=== PATIENT | male | born 1965 | race Caucasian/White ===

== ENCOUNTER 2017-03-19 02:32 | Emergency (ER) | payer SELFPAY ==
[2017-03-19 02:41] VITALS: BP 144/99
--- NOTE | 2017-03-19 03:11 | EDM.PDOC ---
ED HPI GENERAL MEDICAL PROBLEM - General Chief Complaint: Chest Pain Stated Complaint: [facility] Time Seen by Provider: 03/19/17 02:32 - History of Present Illness INITIAL COMMENTS - FREE TEXT/NARRATIVE: 51-year-old male presents emergency room by EMS with chest pain. Patient awoke about 30 minutes prior to arrival with chest pain. He described as a substernal pressure he had a burning in his throat and in the back of his mouth. The pain did not radiate into his arm up his neck. The pain is not associated with shortness of breath no nausea or vomiting. Patient has a significant history of having 2 stents placed a little over a year ago he is on Plavix and is supposed to be taking daily aspirin but occasionally he misses this. Patient was treated with a single spray of nitroglycerin and given 324 mg daily aspirin in route. After the nitroglycerin the patient became pain free and is pain-free upon arrival to the emergency room. Past medical history is otherwise unremarkable family history is unremarkable for coronary artery disease. - Related Data Allergies Allergy/AdvReac Type Severity Reaction Status Date / Time No Known Allergies Allergy Verified 03/19/17 02:39 Home Meds: Home Meds Clopidogrel [Plavix] 75 mg PO DAILY 04/20/16 [History] Metoprolol Tartrate [Lopressor] 12.5 mg PO DAILY 04/20/16 [History] atorvaSTATin [Lipitor] 10 mg PO BEDTIME 04/20/16 [History] Aspirin 81 mg PO DAILY 03/19/17 [History] Past Medical History HEENT History: Reports: Impaired Vision Cardiovascular History: Reports: High Cholesterol, Hypertension, [place], Stents Musculoskeletal History: Reports: Back Pain, Chronic, Osteoarthritis Neurological History: Reports: Seizure - Past Surgical History Cardiovascular Surgical History: Reports: Coronary Artery Stent Neurological Surgical History: Reports: Lumbar Spine Musculoskeletal Surgical History: Reports: Other (See Below) Other Musculoskeletal Surgeries/Procedures:: Lumbar fusion Social & Family History - Family History Family Medical History: Noncontributory - Tobacco Use Smoking Status *Q: Never Smoker Second Hand Smoke Exposure: No - Caffeine Use Caffeine Use: Reports: Coffee - Recreational Drug Use Recreational Drug Use: No - Living Situation & Occupation Occupation: Unemployed ED ROS GENERAL - Review of Systems Review Of Systems: See Below Constitutional: Reports: No Symptoms HEENT: Reports: No Symptoms Respiratory: Reports: No Symptoms Cardiovascular: Reports: Chest Pain (He has not had any recent chest pain chest tonight episode). Denies: Dyspnea on Exertion, Edema, Lightheadedness, Palpitations GI/Abdominal: Reports: No Symptoms : Reports: No Symptoms Musculoskeletal: Reports: No Symptoms Neurological: Reports: No Symptoms Psychiatric: Reports: No Symptoms ED EXAM, GENERAL - Physical Exam Exam: See Below Exam Limited By: No Limitations General Appearance: Alert, No Apparent Distress, Other (Vital signs stable he is absolutely pain-free at this time) Head: Atraumatic, Normocephalic Neck: Normal Inspection, Supple, Non-Tender, Full Range of Motion Respiratory/Chest: No Respiratory Distress, Lungs Clear, Normal Breath Sounds Cardiovascular: Regular Rate, Rhythm, No Edema, No Murmur GI/Abdominal: Normal Bowel Sounds, Soft, Non-Tender Back Exam: Normal Inspection. No: CVA Tenderness (L), CVA Tenderness (R) Extremities: Normal Inspection, No Pedal Edema Neurological: Alert, Oriented EKG INTERPRETATION EKG Date: 03/19/17 Rhythm: NSR Victor: LAD-left axis deviation P-wave: present QRS: other (Q waves anteriorly) ST-T: normal QT: normal Comparison: NA - no prior EKG Course - Vital Signs Last Recorded V/S: Last Vital Signs Temp 35.9 C 03/19/17 02:36 Pulse 98 03/19/17 02:36 Resp 19 03/19/17 02:36 BP 144/99 H 03/19/17 02:36 Pulse Ox 97 03/19/17 02:36 - Orders/Labs/Meds Orders: Active Orders 24 hr Category Date Time Status EKG Documentation Completion [RC] STAT Care 03/19/17 02:42 Active Chest 1V Frontal [CR] Stat Exams 03/19/17 02:42 Taken Labs: Laboratory Tests 03/19/17 03/19/17 03/19/17 Range/Units 02:46 02:46 02:46 WBC 7.94 (4.23-9.07) K/mm3 RBC 5.36 (4.63-6.08) M/mm3 Hgb 16.6 (13.7-17.5) gm/L Hct 47.8 (40.1-51.0) % MCV 89.2 (79.0-92.2) fl MCH 31.0 (25.7-32.2) pg MCHC 34.7 (32.2-35.5) g/dl RDW Std Deviation 39.4 (35.1-43.9) fL Plt Count 252 (163-337) K/mm3 MPV 9.5 (9.4-12.3) fl Neutrophils % (Manual) 67 H (40-60) % Band Neutrophils % 0 (0-10) % Lymphocytes % (Manual) 29 (20-40) % Atypical Lymphs % 0 % Monocytes % (Manual) 1 L (2-10) % Eosinophils % (Manual) 1 (0.8-7.0) % Basophils % (Manual) 2 H (0.2-1.2) Platelet Estimate Adequate RBC Morph Comment Normal PT 10.5 (8.0-13.0) SECONDS INR 0.97 APTT 27 (22-36) SECONDS Sodium 140 (136-145) mEq/L Potassium 3.8 (3.5-5.1) mEq/L Chloride 104 (98-107) mEq/L Carbon Dioxide 25 (21-32) mEq/L Anion Gap 14.8 (5-15) BUN 20 H (7-18) mg/dL Creatinine 1.2 (0.7-1.3) mg/dL Est Cr Clr Drug Dosing 81.73 mL/min Estimated GFR (MDRD) > 60 (>60) mL/min BUN/Creatinine Ratio 16.7 (14-18) Glucose 160 H (74-106) mg/dL Calcium 8.4 L (8.5-10.1) mg/dL Total Bilirubin 0.4 (0.2-1.0) mg/dL AST 15 (15-37) U/L ALT 34 (16-63) U/L Alkaline Phosphatase 78 (46-116) U/L Troponin I < 0.017 (0.00-0.056) ng/mL Total Protein 7.4 (6.4-8.2) g/dl Albumin 3.7 (3.4-5.0) g/dl Globulin 3.7 gm/dL Albumin/Globulin Ratio 1.0 (1-2) - Re-Assessments/Exams Free Text/Narrative Re-Assessment/Exam: 03/19/17 04:11 The patient is still pain free his labs are negative chest x-ray is rotated but shows no acute cardiopulmonary changes EKG is nondiagnostic for ischemia or STEMI. The patient is somewhat insistent on going home because of his work schedule at this point I've informed him that my concern with this and is his first bone and isn't that reliable and I want to check a second troponin he understands this but is still insistent on going home. Departure - Departure Time of Disposition: 04:12 Disposition: Home, Self-Care 01 Clinical Impression: Chest pain Forms: ED Department Discharge Additional Instructions: Return to the emergency room with any questions or problems. Followup with your [facility] staff officer within a week. Get your nitroglycerin filled and use as needed. - My Orders Last 24 Hours: My Active Orders 03/19/17 02:42 EKG Documentation Completion [RC] STAT Chest 1V Frontal [CR] Stat - Assessment/Plan Last 24 Hours: My Active Orders 03/19/17 02:42 EKG Documentation Completion [RC] STAT Chest 1V Frontal [CR] Stat
--- NOTE | 2017-03-19 07:24 | CR ---
Chest: Portable view of the chest was obtained. Comparison: No previous study. Heart size and mediastinum are normal. Lungs are clear. Bony structures appear grossly intact. Impression: 1. Nothing acute is identified on portable chest x-ray. Diagnostic code #1
== END 2017-03-19 04:33 | disposition home or self-care (01) ==
LOC: JD.ED 02:32
DX: R07.2 Precordial pain (principal); E78.00 Pure hypercholesterolemia, unspecified; I10 Essential (primary) hypertension; I25.2 Old myocardial infarction; Z79.82 Long term (current) use of aspirin; Z79.899 Other long term (current) drug therapy
CPT/HCPCS: 36415; 71010; 71010-26; 80053; 84484; 85025; 85610; 85730; 93005; 99284; 99285-25